=== PATIENT | female | born 1955 | race Caucasian/White ===

== ENCOUNTER 2022-11-24 13:44 | Emergency (ER) | payer MEDICARE, MEDICAID, SELFPAY ==
[2022-11-24 14:07] VITALS: BP 100/67; PULSE 90; RESP 20; TEMP 36.4; O2SAT 79
--- NOTE | 2022-11-24 14:07 | ECG_ITS ---
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 Measurements Intervals [place] Rate: 79 P: 87 MS: 198 QRS: 125 QRSD: 126 T: 50 QT: 419 QTc: 480 Interpretive Statements SINUS RHYTHM Nonspecific ST-T changes RIGHT BUNDLE BRANCH BLOCK [120+ ms QRS DURATION, UPRIGHT V1, 40+ ms S IN I/aVL/V4/V5/V6] LEFT POSTERIOR FASCICULAR BLOCK [QRS AXIS > 109, INFERIOR Q] No previous ECG available for comparison Electronically Signed On 11-24-2022 16:50:32 SENIOR UX DEVELOPER by Melissa Wilson M.D. [email or web address] Boy Delivery Business [email or web address] health atrium [facility] center.[employer]/store/OM/[id number]
--- NOTE | 2022-11-24 14:26 | XR_ITS ---
WS: [id number] Exam: XR chest 1V portable [id number] Date/Time of Exam: 11/24/2022 3:35 PM Reason For Exam: dyspnea/cough No priors. The lungs are fully expanded and clear. No pleural effusions. Heart size top limits normal for AP por table technique. Bony structures are intact. The mediastinum is normal in contour. Fusion hardware no luciano over the lower C-spine. XR/XR chest 1V portable [id number] IMPRESSION: 1. No acute cardiopulmonary finding.
--- NOTE | 2022-11-24 14:48 | ED_ITS ---
HPI - SOB/Dyspnea General: Chief Complaint: Shortness of Breath/Dyspnea Stated Complaint: Chest Pains, Dizziness Time Seen by Provider: 11/24/22 14:25 Source: patient Mode of arrival: ambulatory History of Present Illness: HPI Narrative: 67-year-old female known history of COPD is oxygen dependent at 4 L/min. She has albuterol nebs at home has not been using them since last night. She states symptoms are worse when she walks. Nonproductive cough. No vomiting no diarrhea no fevers that she has noticed. She is a former smoker quit about 5 to 6 months ago. MD elicited complaint: shortness of breath and cough Pertinent past history: COPD Onset (ago): hour(s) Timing: constant Severity: mild Exacerbating factors: nothing Relieving factors: nothing Known history of: COPD Associated symptoms: Deny abdominal pain, chest congestion, chest pain, cough, diaphoresis, dizziness, extremity pain, fever(s), hemoptysis, lightheadedness, myalgias, nausea, orthopnea, palpitations, paresthesias, polydipsia, polyuria, rash, sense of impending doom, syncope or vomiting Treatment prior to arrival: oxygen Review of Systems Const: Denies: fever(s), chills, fatigue, malaise or diaphoresis ENMT: Denies: throat pain, ear or mastoid pain, nasal discharge or nasal congestion Card: Denies: chest pain, palpitations, lightheadedness, syncope or orthopnea Resp: Denies: dyspnea, productive cough, non-productive cough, wheezing, hemoptysis or chest congestion GI: Denies: abdominal pain, nausea or vomiting : Denies: flank pain, difficulty voiding, dysuria, urinary frequency or urinary urgency Musc: Denies: neck pain, back pain or extremity pain Skin/Breast: Denies: rash or pruritus Neuro: Denies: dizziness Endo: Denies: polyuria or polydipsia PFS ED PFSH: Medical History (Updated 11/24/22 @ 16:33 by Dwayne Connor DO) COPD (chronic obstructive pulmonary disease) Physical Exam Const: GENERAL APPEARANCE: cooperative and comfortable ORIENTATION/CONSCIOU SNESS: Yes awake, Yes oriented to person, Yes oriented to place and Yes oriented to time HENMT: COMMON NORMALS: normocephalic, atraumatic and hearing grossly normal bilaterally HEAD & SCALP: normocephalic and atraumatic Resp: AUSCULTATION: rhonchi and wheezes Cardio: COMMON NORMALS: regular rate, regular rhythm and No murmurs present (Cardio) RATE: regular rate RHYTHM: regular rhythm GI: COMMON NORMALS: Soft to palpation and No hepatosplenomegaly present AUSCULTATION: Yes normoactive bowel sounds PALPATION: Yes Soft to palpation, No Tenderness to palpation present (GI), No Guarding due to palpation present (GI) and Yes No hepatosplenomegaly present Extremity: COMMON NORMALS: normal to inspection, capillary refill normal, no clubbing, cyanosis or edema, no calf tenderness and no pedal edema Neuro: SENSORIUM/ORIENTATION: Yes oriented to person, Yes oriented to place and Yes oriented to time Skin: COMMON NORMALS: no rashes or lesions noted GENERAL SKIN EXAM: no rashes or lesions noted Course 2 Vital Signs: Vital signs: Vital Signs Temperature 97.5 F L 11/24/22 14:07 Pulse Rate 88 11/24/22 16:47 Respiratory Rate 20 H 11/24/22 16:47 Blood Pressure 121/74 11/24/22 16:47 Pulse Oximetry 91 11/24/22 16:47 Oxygen Delivery Me thod 11/24/22 14:57 Oxygen Flow Rate 4 11/24/22 16:03 MDM - SOB/Dyspnea Medical Decision Making Labs imaging and EKG reviewed no acute EKG changes chest x-ray unremarkable patient has acute exacerbation COPD no evidence of pneumonia no suggestion of PE at this time. She normally supposed to be wearing 4 L by nasal cannula after treatment with nebulizer she is much improved discharge home nebulizers prednisone taper. Follow-up with her primary care doctor within the week. Return if has further problems Medical Records I reviewed the patient's medical records. Lab Data I reviewed the patient's lab results. 11/24/22 14:42 11/24/22 14:42 Labs/Radiology: Radiology Impressions Chest X-Ray 11/24/22 14:26 IMPRESSION: 1. No acute cardiopulmonary finding. Laboratory Results WBC 8.0 10^3/uL (4.0-10.0) 11/24/22 14:42 RBC 4.51 10^6/uL (4.1-5.3) 11/24/22 14:42 Hgb 11.8 g/dL (11.5-15.3) 11/24/22 14:42 Hct 39.3 % (37.0-47.0) 11/24/22 14:42 MCV 87.1 fl (81-99) 11/24/22 14:42 MCH 26.2 pg (28.0-34.0) L 11/24/22 14:42 MCHC 30.0 g/dL (30.0-36.0) 11/24/22 14:42 RDW 15.6 % (12.1-15.1) H 11/24/22 14:42 Plt Count 178 10^3/cmm (130-400) 11/24/22 14:42 MPV 11.7 fL (7.4-10.4) H 11/24/22 14:42 Neut % (Auto) 74.2 % 11/24/22 14:42 Lymph % (Auto) 13.6 % 11/24/22 14:42 [place] % (Auto) 9.1 % 11/24/22 14:42 Eos % (Auto) 2.0 % 11/24/22 14:42 Baso % (Auto) 0.7 % 11/24/22 14:42 Neut # (Auto) 5.94 10^3/uL (1.8-7.7) 11/24/22 14:42 Lymph # (Auto) 1.1 10^3/uL (0.8-4.8) 11/24/22 14:42 [place] # (Auto) 0.7 10^3/uL (0.2-0.9) 11/24/22 14:42 Eos # (Auto) 0.2 10^3/uL (0.0-0.8) 11/24/22 14:42 Baso # (Auto) 0.1 10^3/uL (0.0-0.1) 11/24/22 14:42 Nucleated RBC % (auto) 0 % 11/24/22 14:42 Nucleated RBCs # 0.0 /100WBC 11/24/22 14:42 Sodium 138 mmol/L (136-145) 11/24/22 14:42 Potassium 3.2 mmol/L (3.5-5.1) L 11/24/22 14:42 Chloride 93 mmol/L (98-107) L 11/24/22 14:42 Carbon Dioxide 32 mmol/L (22-29) H 11/24/22 14:42 Anion Gap 16.2 (5-19) 11/24/22 14:42 BUN 24 mg/dL (8-23) H 11/24/22 14:42 Creatinine 1.4 mg/dL (0.5-0.9) H 11/24/22 14:42 GFR Calculation 37.5 mL/min (90-130) L 11/24/22 14:42 Glucose 122 mg/dL (65-115) H 11/24/22 14:42 Calculated Osmolality 291 mOsm/kg (285-295) 11/24/22 14:42 Calcium 9.1 mg/dL (8.5-10.5) 11/24/22 14:42 Total Bilirubin 0.9 mg/dL (0.15-1.2) 11/24/22 14:42 AST 18 U/L (0-32) 11/24/22 14:42 ALT 11 U/L (0-33) 11/24/22 14:42 Alkaline Phosphatase 104 U/L (35-105) 11/24/22 14:42 Troponin T Baseline 44 ng/L (0-10) H 11/24/22 14:42 Total Protein 6.5 g/dL (6.6-8.7) L 11/24/22 14:42 Albumin 3.9 g/dL (3.5-5.2) 11/24/22 14:42 Globulin 2.6 g/dL (1.3-4.6) 11/24/22 14:42 Discharge Plan Discharge Patient Disposition: Home Clinical Impression: Acute exacerbation of chronic obstructive airways disease Condition: Stable Prescriptions: New prednisone 20 mg tablet 20 mg PO TID Qty: 15 0RF Rx Instructions: 1 p.o. 3 times daily x3 days, 1 p.o. twice daily x2 days, 1 p.o. daily x2 days albuterol sulfate 90 mcg/actuation HFA aerosol inhaler 2 inh INHALATION Q4H PRN (Reason: shortness of breath or wheezing) Qty: 18 0RF Discharge Orders: Discharge ED (Routine); Ordered 11/24/22 Ordered By: Dwayne Connor Discharge Diet: Usual diet Discharge Activity: Increase activity as tolerated Patient Instructions: Opioid Safety, Pain Management Activity Restrictions/Additional Instructions: You were seen today for a an exacerbation of your COPD. Your oxygen sats remained stable and your usual 4 L/min she should continue to use 4 L/min continuously. Also recommend that you start steroid oral taper tomorrow that was prescribed today and use your albuterol and DuoNebs every 4 hours while awake. Coding Level of Care Code ED Pharmacy Resident for Remberto Orozco
--- NOTE | 2022-11-24 14:49 | ED_ITS ---
HPI - SOB/Dyspnea General: Chief Complaint: Shortness of Breath/Dyspnea Stated Complaint: Chest Pains, Dizziness Time Seen by Provider: 11/24/22 14:25 Source: patient Mode of arrival: ambulatory [facility] ED PFSH: Medical History (Updated 11/24/22 @ 16:33 by Dwayne Connor DO) COPD (chronic obstructive pulmonary disease) Course Vital Signs: Vital signs: Vital Signs Temperature 97.5 F L 11/24/22 14:07 Pulse Rate 88 11/24/22 16:47 Respiratory Rate 20 H 11/24/22 16:47 Blood Pressure 121/74 11/24/22 16:47 Pulse Oximetry 91 11/24/22 16:47 Oxygen Delivery Me thod 11/24/22 14:57 Oxygen Flow Rate 4 11/24/22 16:03 MDM - SOB/Dyspnea Lab Data 11/24/22 14:42 11/24/22 14:42 Labs/Radiology: Radiology Impressions Chest X-Ray 11/24/22 14:26 IMPRESSION: 1. No acute cardiopulmonary finding. Laboratory Results WBC 8.0 10^3/uL (4.0-10.0) 11/24/22 14:42 RBC 4.51 10^6/uL (4.1-5.3) 11/24/22 14:42 Hgb 11.8 g/dL (11.5-15.3) 11/24/22 14:42 Hct 39.3 % (37.0-47.0) 11/24/22 14:42 MCV 87.1 fl (81-99) 11/24/22 14:42 MCH 26.2 pg (28.0-34.0) L 11/24/22 14:42 MCHC 30.0 g/dL (30.0-36.0) 11/24/22 14:42 RDW 15.6 % (12.1-15.1) H 11/24/22 14:42 Plt Count 178 10^3/cmm (130-400) 11/24/22 14:42 MPV 11.7 fL (7.4-10.4) H 11/24/22 14:42 Neut % (Auto) 74.2 % 11/24/22 14:42 Lymph % (Auto) 13.6 % 11/24/22 14:42 [place] % (Auto) 9.1 % 11/24/22 14:42 Eos % (Auto) 2.0 % 11/24/22 14:42 Baso % (Auto) 0.7 % 11/24/22 14:42 Neut # (Auto) 5.94 10^3/uL (1.8-7.7) 11/24/22 14:42 Lymph # (Auto) 1.1 10^3/uL (0.8-4.8) 11/24/22 14:42 [place] # (Auto) 0.7 10^3/uL (0.2-0.9) 11/24/22 14:42 Eos # (Auto) 0.2 10^3/uL (0.0-0.8) 11/24/22 14:42 Baso # (Auto) 0.1 10^3/uL (0.0-0.1) 11/24/22 14:42 Nucleated RBC % (auto) 0 % 11/24/22 14:42 Nucleated RBCs # 0.0 /100WBC 11/24/22 14:42 Sodium 138 mmol/L (136-145) 11/24/22 14:42 Potassium 3.2 mmol/L (3.5-5.1) L 11/24/22 14:42 Chloride 93 mmol/L (98-107) L 11/24/22 14:42 Carbon Dioxide 32 mmol/L (22-29) H 11/24/22 14:42 Anion Gap 16.2 (5-19) 11/24/22 14:42 BUN 24 mg/dL (8-23) H 11/24/22 14:42 Creatinine 1.4 mg/dL (0.5-0.9) H 11/24/22 14:42 GFR Calculation 37.5 mL/min (90-130) L 11/24/22 14:42 Glucose 122 mg/dL (65-115) H 11/24/22 14:42 Calculated Osmolality 291 mOsm/kg (285-295) 11/24/22 14:42 Calcium 9.1 mg/dL (8.5-10.5) 11/24/22 14:42 Total Bilirubin 0.9 mg/dL (0.15-1.2) 11/24/22 14:42 AST 18 U/L (0-32) 11/24/22 14:42 ALT 11 U/L (0-33) 11/24/22 14:42 Alkaline Phosphatase 104 U/L (35-105) 11/24/22 14:42 Troponin T Baseline 44 ng/L (0-10) H 11/24/22 14:42 Total Protein 6.5 g/dL (6.6-8.7) L 11/24/22 14:42 Albumin 3.9 g/dL (3.5-5.2) 11/24/22 14:42 Globulin 2.6 g/dL (1.3-4.6) 11/24/22 14:42 Discharge Plan Discharge Patient Disposition: Home Clinical Impression: Acute exacerbation of chronic obstructive airways disease Condition: Stable Prescriptions: New prednisone 20 mg tablet 20 mg PO TID Qty: 15 0RF Rx Instructions: 1 p.o. 3 times daily x3 days, 1 p.o. twice daily x2 days, 1 p.o. daily x2 days albuterol sulfate 90 mcg/actuation HFA aerosol inhaler 2 inh INHALATION Q4H PRN (Reason: shortness of breath or wheezing) Qty: 18 0RF Discharge Orders: Discharge ED (Routine); Ordered 11/24/22 Ordered By: Dwayne Connor Discharge Diet: Usual diet Discharge Activity: Increase activity as tolerated Patient Instructions: Opioid Safety, Pain Management Activity Restrictions/Additional Instructions: You were seen today for a an exacerbation of your COPD. Your oxygen sats remained stable and your usual 4 L/min she should continue to use 4 L/min continuously. Also recommend that you start steroid oral taper tomorrow that wa s prescribed today and use your albuterol and DuoNebs every 4 hours while awake. Coding Level of Care Code ED Sales Activity Manager for Remberto Orozco
[2022-11-24] MEDS: ipratropium-albuterol 3 mL Neb INHALATION (14:56)
[2022-11-24 14:57] VITALS: PULSE 79; RESP 18; O2SAT 89
[2022-11-24 15:00] VITALS: PULSE 79
[2022-11-24 15:00] LABS: Basophils # 0.1 10^3/uL (0.0-0.1); Basophils % 0.7 %; Eosinophils # 0.2 10^3/uL (0.0-0.8); Hematocrit 39.3 % (37.0-47.0); Hemoglobin 11.8 g/dL (11.5-15.3); Lymphocytes # 1.1 10^3/uL (0.8-4.8); Lymphocytes % 13.6 %; Mean Corpuscular Hemoglobin 26.2 pg (28.0-34.0); Mean Corpuscular Volume 87.1 fl (81-99); Mean Platelet Volume 11.7 fL (7.4-10.4); Monocytes # 0.7 10^3/uL (0.2-0.9); Monocytes % 9.1 %; Neutrophils # 5.94 10^3/uL (1.8-7.7); Neutrophils % 74.2 %; Nucleated Red Blood Cells % 0 %; Platelet Count 178 10^3/cmm (130-400); Red Blood Count 4.51 10^6/uL (4.1-5.3); Red Cell Distribution Width 15.6 % (12.1-15.1)
[2022-11-24 15:17] LABS: Alanine Aminotransferase 11 U/L (0-33); Albumin Level 3.9 g/dL (3.5-5.2); Alkaline Phosphatase 104 U/L (35-105); Anion Gap 16.2 (5-19); Aspartate Amino Transferase 18 U/L (0-32); Blood Urea Nitrogen 24 mg/dL (8-23); Calcium 9.1 mg/dL (8.5-10.5); Carbon Dioxide 32 mmol/L (22-29); Chloride 93 mmol/L (98-107); Globulin 2.6 g/dL (1.3-4.6); Glomerular Filtration Rate 37.5 mL/min (90-130); Glucose 122 mg/dL (65-115); Osmolality Calculated 291 mOsm/kg (285-295); Potassium 3.2 mmol/L (3.5-5.1); Sodium 138 mmol/L (136-145); Total Bilirubin 0.9 mg/dL (0.15-1.2); Total Protein 6.5 g/dL (6.6-8.7)
[2022-11-24 15:19] LABS: Troponin(5th) Baseline 44 ng/L (0-10)
[2022-11-24 16:03] VITALS: BP 122/74; PULSE 85; RESP 20; O2SAT 90
--- NOTE | 2022-11-24 16:26 | ECG_ITS ---
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 Measurements Intervals [place] Rate: 71 P: 90 NC: 219 QRS: 120 QRSD: 117 T: 147 QT: 449 QTc: 489 Interpretive Statements SINUS RHYTHM WITH FIRST DEGREE AV BLOCK Nonspecific ST-T changes Compared to ECG 11/24/2022 14:14:21 First degree AV block now present Right bundle-branch block no longer present Left posterior fascicular block no longer present Electronically Signed On 11-24-2022 16:54:22 DEAN [employer] MEN by Melissa Wilson M.D. [id number]
[2022-11-24 16:47] VITALS: BP 121/74; PULSE 88; RESP 20; O2SAT 91
== END 2022-11-24 16:48 | disposition home or self-care (01) ==
PROVIDERS: Emergency Provider Family Medicine
DX: J44.1 Chronic obstructive pulmonary disease with (acute) exacerbation (principal)
CPT/HCPCS: 71045; 80053; 84484; 85025; 93005; 94640; 96374; 99285; J2930